=== PATIENT | male | born 1995 | race Caucasian/White ===

== ENCOUNTER 2018-06-21 06:49 | Day surgery (SDC) | payer OTHER ==
[2018-06-21] MEDS ORDERED: ceFAZolin 2 GM/50 ML 2 GM/50 ML BAG IV ONE (07:03)
[2018-06-21] MEDS ORDERED: LACTATED RINGERS 1,000 ML IV ONE ×2 (07:21→11:10)
[2018-06-21] MEDS ORDERED: BUPIVACAINE 0.25% PF 30 ML VIAL ONE (07:51)
[2018-06-21] MEDS ORDERED: EPINEPHrine 1 MG/ML AMP ONE (07:51)
--- NOTE | 2018-06-21 08:32 | ANESTHESIA ---
Pre-Anesthesia VS, & Labs - Diagnosis Left ACL tear, left meniscus tear - Procedure left knee meniscus treatment and ACL reconstruction, possible allograft Vital Signs: Temp Pulse Resp BP Pulse Ox 36.4 C L 48 L 16 132/57 H 98 06/21/18 07:22 06/21/18 07:22 06/21/18 07:22 06/21/18 07:22 06/21/18 07:22 Height 5 ft 9 in Weight (kg) 86.18 kg - NPO >8 hours Home Medications and Allergies Home Medications: Ambulatory Orders No Known Home Medications 06/19/18 No Known Home Medications 06/19/18 Allergies/Adverse Reactions: Allergies Allergy/AdvReac Type Severity Reaction Status Date / Time No Known Drug Allergies Allergy Verified 06/19/18 16:29 Anes History & Medical History - Anesthetic History Anesthesia Complications: reports: No previous complications Family history of Anesthesia Complications: Denies - Medical History Cardiovascular: reports: None Pulmonary: reports: None Gastrointestinal: reports: None Urinary: reports: None Musculoskeletal: reports: Other Endocrine/Autoimmune: reports: None Skin: reports: None Exam General: Alert Dental: WNL Mouth Openin Fingerbreadth Mallampati classification: II Thyromental Distance: greater than 6 cm Respiratory: Lungs clear Cardiovascular: Regular rate Mental/Cognitive Status: Alert/Oriented X3 Plan Anesthesia Type: General Consent for Procedure(s) Verified and Reviewed: Yes Code Status: Attempt Resuscitation ASA classification: 1-Healthy patient Is this case an emergency?: No
[2018-06-21] MEDS ORDERED: fentaNYL 100 MCG/2 ML VIAL IVP ONE (09:49)
[2018-06-21] MEDS ORDERED: DEXAMETHASONE 4 MG/ML VIAL IVP ONE (09:49)
[2018-06-21] MEDS ORDERED: MIDAZOLAM 2 MG/2 ML VIAL IVP ONE (09:49)
[2018-06-21] MEDS ORDERED: LIDOCAINE-MPF 2% 5 ML VIAL IM ONE (09:49)
[2018-06-21] MEDS ORDERED: PROPOFOL 200 MG/20 ML VIAL IVP ONE (09:49)
[2018-06-21] MEDS ORDERED: ONDANSETRON 4 MG/2 ML VIAL IVP ONE (09:49)
[2018-06-21] MEDS ORDERED: KETOROLAC 30 MG/ML VIAL IVP ONE (09:49)
[2018-06-21] MEDS ORDERED: ACETAMINOPHEN 1,000 MG/100 ML 100 ML IV ONE (09:49)
[2018-06-21] MEDS ORDERED: BUPIVACAINE 0.25% PF 30 ML VIAL SUBQ ONE ×3 (09:52→13:17)
[2018-06-21] MEDS ORDERED: ONDANSETRON 4 MG/2 ML VIAL IVP PRN (13:34)
[2018-06-21] MEDS ORDERED: oxyCODONE 5 MG TABLET PO PRN (13:34)
--- NOTE | 2018-06-21 13:51 | OPERATIVE REPORT ---
Operative Report - General Procedure Date: 06/21/18 Planned Procedure: Left medial meniscus repair and ACL reconstruction with patellar tendon aut Pre-Op Diagnosis: Left medial meniscus tear. ACL tear. Procedure Performed: Left medial meniscus repair, Left medial meniscus debridement, and ACL reconstruction with patellar tendon autograft - Procedure Note Primary Surgeon: Daniel Secondary Surgeon: Jany Estimated Blood Loss (mL): 50 Complications: None - Other Other Information/Narrative: Tourniquet time: 130 minutes. DETAILED PROCEDURE: Left knee ACL reconstruction with patellar tendon autograft Left knee medial meniscus debridement Left knee bucket-handle medial meniscus repair IMPLANTS: [FasT-Fix 360 x 3 2-0 FiberWire x1 BTB tight rope Arthrex 9 x 20 mm titanium screw by Arthrex] POSTOPERATIVE PLAN: 0-2: No weightbearing. 2-6 weeks weightbearing as tolerated with the knee locked in full extension 6-12 weeks can ambulate without the brace of his quadriceps is ready. No deep knee squats 12 weeks and beyond advance activity per protocol EXAMINATION UNDER ANESTHESIA: ROM: 10 degrees to 135 degrees. Lenny 2B. Pivot shift glide. Anterior drawer abnormal ARTHROSCOPIC FINDINGS: Patellofemoral joint showed no cartilage lesions or loose bodies. Medial gaston- joint showed a large flipped bucket-handle meniscus tear comprising the entirety of the medial meniscus it also had a radial tear at the junction of the posterior horn and the body. The radial tear portion was debrided in this left 10 mm of rim. The meniscus was repaired with 3 FasT-Fix 360s and 1 outside in technique for the anterior horn. Lateral gaston-joint showed the femoral tibial cartilage and meniscus to be intact. The medial cartilage was intact but did have partial thickness lesions by the end of the case secondary to the work that was done. The not show the PCL to be intact. ACL was torn. INDICATION FOR SURGERY: This is a 23-year-old male who sustained a noncontact twisting injury and [place] 3-1/2 weeks ago. He was unable to straighten his knee and was had a MRI showing ACL tear and medial meniscus tear. He was medevac to home I saw him in clinic this week in our operating on to help him obtain full extension and to restore rotational stability of the knee.. Nonoper ative managment failed to resolve symptoms. The risks, benefits, and alternatives were discussed. Risks included pain, bleeding, infection, damage to nearby structures, lack of symptom relief, implant complications, stiffness, need for further surgeries, DVT, PE, stroke, and even . He signed a written consent form. PROCEDURE IN DETAIL: The patient was met in the preoperative holding on the day of the procedure. Operative extremity was signed. Consent was verified. He desired to proceed. Regional anesthesia was obtained in the preoperative area. He was brought to the operating room and surrendered to anesthesia. Once general anesthesia was obtained he was placed in the lateral decubitus position with the operative side up. An axillary roll was placed and all bony prominences were well-padded. He was then prepped and draped in the standard sterile fashion. A surgical timeout was held to confirm the patient procedure, identity, procedure, laterality, allergies, images, and antibiotics. All were in agreement we proceeded. A standard diagnostic arthroscopy was performed utilizing anteromedial anterolateral incisions. The anteromedial incision was made under direct v isualization. The findings of the diagnostic arthroscopy can be found above. I then proceeded to debride the backside of the meniscus tear and used a ball rasp to get to the back of the joint and debride the rim. Following this I then reduced the meniscus using a blunt instrument. After reduction I was able to better appreciate that there was a radial tear at the border of the posterior horn and the body. This was debrided with a straight biter and a sucker shaver. Even at the edge of this tear there still remained at least 1 cm of intact meniscus so repair was indicated. I then reduced it and placed a fast fix near the root and then 1 further over at the junction of the posterior horn and body. The next one was placed from the lateral side and I attempted to put it near the anterior horn. The implant did not take appropriately and it was removed from the knee joint. I then went with an outside in approach. A spinal needle was placed coming out on the superior portion of the meniscus at the meniscal capsular junction. I then placed a second needle in a an oblique mattress fashion. I then dissected down between the 2 needles down to the joint capsule. I then threaded a FiberWire through one needle loop of 0 PDS to the other. The FiberWire was then brought through the 0 PDS loop and they were removed leaving a oblique mattress within the meniscus. I then tied this reducing and stabilizing the meniscus nicely. I used a probe to ensure the meniscus was stable. I then proceeded to the graft harvest. Through an 8 cm incision just medial to midline line I made a full-thickness cut down to the peritenon and created full- thickness skin flaps. I then split the peritenon in line with the fibers of the tendon and from the underlying tendon. The tendon measured to be 36 mm wide I took the central 11 mm. I obtained a triangular bone block off the femur that was 20mm long and a trapezoidal block from the tibia that was 30 mm long. This was brought to the back table and prepped down to 9.5 mm on the femoral side and 10 mm on the tibial side. Satisfied with this preparation I then moved onto drilling the tunnels. Satisfied with this I debrided the remnant ACL from the notch. I then placed the flip cutter guide and made a 2 cm incision on the lateral skin. This incision was brought down through the IT band and the bowel was brought down to bone. I then placed the 10 mm flip cutter into the joint flipped it and scored the back wall. It was found to have 2 mm back wall and was just off the articular margin distally. Satisfied with this I drilled to 28 mm. I then removed all free bone from the joint and placed FiberWire. I then brought the tibial drill guide in and measured the tibia to be 55. I placed the guide suite with an 7 mm in anterior to the PCL in line with the posterior border of the anterior horn lateral meniscus and just on the medial edge of the spine. Satisfied with this the pain was brought into the joint centrally within the footprint. Satisfied with that I placed a call carotid and I drilled a size 10 mm tunnel. I then debrided the edges of the tunnel to ensure easy passage and brought the tight rope sutures in and out of the lateral femur. I then delivered the graft into the joint push the bone block into the posterior portion of the notch and then brought the bone block into the femur without d ifficulty. The button was found to be just at the level of the skin and I reduce the button down to the bone under direct visualization. I then tied 6 reverse half hitches alternating posts satisfied with that a large bump was placed under the knee and it was put into 30 degrees of flexion I then placed a posterior drawer and the guidewire anteriorly within the tunnel the 9 mm screw was then placed in the graft was fixed very nicely. There was a 1 a Lockman and pivot shift had been restored. I then irrigated all wounds and I placed the autograft within the patella and DBX putty within the tibial tubercle graft site I then closed the peritenon over with a running Vicryl. I closed the skin with 2-0 Vicryl deep and then running Monocryl in the skin. The IT band was closed with a single Vicryl stitch.Steri- Strips were placed in 20 cc of Marcaine were put around the wounds. A sterile dressing was then applied and a range of motion brace. He was awakened and transferred to recovery room.
[2018-06-21] MEDS: fentaNYL 100 MCG/2 ML VIAL ONE ×2 (14:13→14:25)
[2018-06-21] MEDS ORDERED: DEXAMETHASONE 4 MG/ML VIAL ONE (14:19)
[2018-06-21] MEDS ORDERED: ROPIVACAINE 0.5% PF 20 ML AMPULE ONE (14:20)
[2018-06-21] MEDS ORDERED: LIDOCAINE-MPF 2% 5 ML VIAL ONE (14:28)
[2018-06-21] MEDS ORDERED: ACETAMINOPHEN 325 MG TABLET PO ONE (16:00)
[2018-06-21] MEDS ORDERED: ONDANSETRON 4 MG/2 ML VIAL ONE (16:33)
[2018-06-21 17:11] VITALS: BP 143/74
== END 2018-06-21 06:50 | disposition home or self-care (01) ==
LOC: SDS 06:49
PROVIDERS: ATTEND Orthopaedic Surgery
PROC: 0MRP47Z Replacement of Left Knee Bursa and Ligament with Autologous Tissue Substitute, Percutaneous Endoscopic Approach (ICD-10-PCS; 2018-06-21)
PROC: 0LBR4ZZ Excision of Left Knee Tendon, Percutaneous Endoscopic Approach (ICD-10-PCS; 2018-06-21)
PROC: 0SQD4ZZ Repair Left Knee Joint, Percutaneous Endoscopic Approach (ICD-10-PCS; principal; 2018-06-21 08:30)
DX: S83.512A Sprain of anterior cruciate ligament of left knee, initial encounter (principal); S83.212A Bucket-handle tear of medial meniscus, current injury, left knee, initial encounter; S83.242A Other tear of medial meniscus, current injury, left knee, initial encounter
CPT/HCPCS: 29882; 29888; A9270; C1713; J0131; J0690; J7120

== ENCOUNTER 2018-06-22 18:27 | Emergency (ER) | payer OTHER ==
[2018-06-22] MEDS ORDERED: HYDROmorphone 1 MG/ML CARPUJECT IVP STA (19:02)
[2018-06-22] MEDS ORDERED: ONDANSETRON 4 MG/2 ML VIAL IVP STA (19:02)
--- NOTE | 2018-06-22 19:04 | ED Physician Documentation ---
PD HPI LOWER EXT INJURY - Stated complaint Stated Complaint: KNEE PX POST SURG/BLEEDING - Chief complaint Chief Complaint: Ext Problem - History obtained from History obtained from: Patient - History of Present Illness PD HPI LOW EXT INJURY LOCATION: Left (He had a left knee ACL reconstruction yesterday. Today he has had increased pain and controlled by oxycodone and fevers at home. He is not bearing weight on it.) Review of Systems Ten Systems: 10 systems reviewed and negative Constitutional: reports: Fever, Chills. denies: Fatigue Cardiac: denies: Chest pain / pressure, Palpitations Respiratory: denies: Dyspnea, Cough GI: denies: Abdominal Pain PD PAST MEDICAL HISTORY - Past Medical History Past Medical History: No Cardiovascular: None Respiratory: None Neuro: None Endocrine/Autoimmune: None GI: None : None HEENT: None Psych: None Musculoskeletal: Other Derm: None - Past Surgical History Past Surgical History: Yes Ortho: ACL reconstruction - Present Medications Home Medications: Ambulatory Orders Medication Instructions Recorded Confirmed Acetaminophen [Tylenol] 325 06/22/18 Ondansetron HCl [Zofran] 4 06/22/18 Sennosides/Docusate Sodium [Colace 1 06/22/18 2-in-1 Tablet] oxyCODONE ER [OxyCONTIN] 40 06/22/18 - Allergies Allergies/Adverse Reactions: Allergies Allergy/AdvReac Type Severity Reaction Status Date / Time No Known Drug Allergies Allergy Verified 06/22/18 18:33 - Social History Does the pt smoke?: No Smoking Status: Never smoker Does the pt drink ETOH?: Yes ETOH Use: Beer Does the pt have substance abuse?: No - Immunizations Immunizations are current?: Yes - POLST Patient has POLST: No PD ED PE NORMAL - Vitals Vital signs reviewed: Yes - General General: Alert and oriented X 3, Other (He appears uncomfortable and in pain) - Neck Neck: Supple, no meningeal sign, No bony TTP - Cardiac Cardiac: RRR, No murmur - Respiratory Respiratory: No respiratory distress, Clear bilaterally - Abdomen Abdomen: Normal bowel sounds, Soft, Non tender - Back Back: No CVA TTP, No spinal TTP - Derm Derm: Normal color, Warm and dry - Extremities Extremities: Other (Left lower extremity. I did not remove any Steri-Strips but grossly the incisions look okay. The knee is warm but not cellulitic. I did not range him.) - Neuro Neuro: Alert and oriented X 3, Normal speech - Psych Psych: Normal mood, Normal affect Results - Vitals Vitals: Vital Signs - 24 hr 06/22/18 18:31 Temperature 38 C H Heart Rate 79 Respiratory 24 Rate Blood Pressure 158/85 H O2 Saturation 98 Oxygen O2 Source Room air - Labs Labs: Laboratory Tests 06/22/18 06/22/18 06/22/18 19:10 19:10 19:10 WBC 9.7 RBC 5.10 Hgb 15.0 Hct 44.7 MCV 87.8 MCH 29.4 MCHC 33.5 RDW 12.5 Plt Count 236 MPV 7.6 Neut # (Auto) 5.7 Lymph # (Auto) 3.0 Pickett # (Auto) 0.8 Eos # (Auto) 0.1 Baso # (Auto) 0.1 Absolute Nucleated RBC 0.00 Nucleated RBC % 0.0 ESR Sodium 137 Potassium 2.9 L Chloride 105 Carbon Dioxide 25 Anion Gap 7.0 BUN 11 Creatinine 1.0 Estimated GFR (MDRD) 91 Glucose 121 H Lactic Acid 2.0 Calcium 9.1 Total Bilirubin 0.6 AST 30 ALT 28 Alkaline Phosphatase 69 Total Protein 7.4 Albumin 4.4 Globulin 3.0 Albumin/Globulin Ratio 1.5 Lipase 21 L 06/22/18 19:10 WBC RBC Hgb Hct MCV MCH MCHC RDW Plt Count MPV Neut # (Auto) Lymph # (Auto) Pickett # (Auto) Eos # (Auto) Baso # (Auto) Absolute Nucleated RBC Nucleated RBC % ESR 2 Sodium Potassium Chloride Carbon Dioxide Anion Gap BUN Creatinine Estimated GFR (MDRD) Glucose Lactic Acid Calcium Total Bilirubin AST ALT Alkaline Phosphatase Total Protein Albumin Globulin Albumin/Globulin Ratio Lipase PD MEDICAL DECISION MAKING - ED course ED course: 3-year-old gentleman postop day 1 from an ACL repair. He has a low-grade fever but the knee does not look infected. CBC, ESR are reassuring. I spoke by phone with his surgeon, Dr. Sanchez who recommends giving him a short dose of Toradol and he should increase his oxycodone up to 2 tablets every 2 hours as needed and The patient is to call his surgeon tomorrow and authorized me giving him his cell phone number. Departure - Departure Disposition: 01 Home, Self Care Clinical Impression: Post-operative pain Condition: Good Record reviewed to determine appropriate education?: Yes Comments: Increase the oxycodone up to as much as 2 tablets every 2 hours as needed for pain. Follow your temperatures and return for high fevers anything greater than 101. Call Dr. Sanchez tomorrow, his number is [phone].
[2018-06-22 19:23] LABS: BASOPHILS # (AUTO) 0.1 10^3/uL (0.0-0.1); BASOPHILS % (AUTO) 0.7 %; EOSINOPHILS # (AUTO) 0.1 10^3/uL (0.0-0.7); EOSINOPHILS % (AUTO) 0.6 %; LYMPHOCYTES % (AUTO) 31.1 %; MEAN CORPUSCULAR HEMOGLOBIN 29.4 pg (27.0-31.0); MEAN CORPUSCULAR HGB CONC 33.5 g/dL (32.0-36.0); MEAN CORPUSCULAR VOLUME 87.8 fL (80.0-94.0); MEAN PLATELET VOLUME 7.6 fL (7.4-11.4); MONOCYTES # (AUTO) 0.8 10^3/uL (0.0-1.0); MONOCYTES % (AUTO) 8.3 %; NEUTROPHILS # (AUTO) 5.7 10^3/uL (1.5-6.6); NEUTROPHILS % (AUTO) 59.3 %; PLT - PLATELET COUNT 236 10^3/uL (130-450); RED CELL DISTRIBUTION WIDTH 12.5 % (12.0-15.0); WHITE BLOOD COUNT 9.7 x10^3/uL (4.8-10.8)
[2018-06-22 19:39] LABS: ALBUMIN 4.4 g/dL (3.2-5.5); ALBUMIN/GLOBULIN RATIO 1.5 (1.0-2.2); BILIRUBIN,TOTAL 0.6 mg/dL (0.2-1.0); CALCIUM 9.1 mg/dL (8.5-10.3); TOTAL PROTEIN 7.4 g/dL (6.7-8.2)
[2018-06-22] MEDS ORDERED: KETOROLAC 60 MG/2 ML VIAL IVP STA (20:09)
--- NOTE | 2018-06-22 20:20 | XRAY Report ---
Reason: post op pain Procedure Date: 06/22/2018 Accession Number: [id number] / [id number] Procedure: XR - Knee 2 View LT CPT Code: FULL RESULT: EXAM: LEFT KNEE RADIOGRAPHY EXAM DATE: 06/22/2018 07:59 PM. CLINICAL HISTORY: ACL surgery yesterday. Persistent left knee pain. COMPARISON: None. TECHNIQUE: 2 views. FINDINGS: Bones: No unexpected bony abnormality. Joints: Immediately status post ACL repair. Surgical hardware intact. Bones in anatomic alignment. No bony degenerative changes. Soft Tissues: Air and edema at the operative site. No unexpected radiopaque foreign body. IMPRESSION: Unremarkable postoperative exam. [facility]
[2018-06-22 20:31] VITALS: BP 167/83
== END 2018-06-22 20:28 | disposition home or self-care (01) ==
LOC: ED 18:27
DX: G89.18 Other acute postprocedural pain (principal)
CPT/HCPCS: 36415; 73560; 80053; 83605; 83690; 85025; 85651; 86140; 87040; 96374; 96375; 99283; J1170